=== PATIENT | female | born 2000 | race Caucasian/White ===

== ENCOUNTER 2021-10-27 15:40 | Emergency (ER) | payer OTHER, SELFPAY ==
[2021-10-27 17:02] LABS: Urine Blood Trace-intact (Negative); Urine Glucose Negative (Negative); Urine Protein Negative (Negative); Urine Specific Gravity 1.025 (1.005-1.030); Urine pH 6.5 (5.0-7.0)
--- NOTE | 2021-10-27 17:05 | ER ---
Nurse's Notes [facility] Name: Gislela Bangura Age: 20 yrs Sex: Female : 2000 Arrival Date: 10/27/2021 Time: 15:42 Bed 12 Private MD: Diagnosis: Generalized anxiety disorder; related conditions, unspecified, third trimester Presentation: 10/27 15:51 Chief complaint: Patient states: Was in a verbal argument w/ a family member and ph started to have a panic attack, came to ED because she is 7 months and concerned about her baby not getting enough air, reports tingling to face and hands. Coronavirus screen: Vaccine status:. Ebola Screen: No symptoms or risks identified at this time. Initial Sepsis Screen: Does the patient meet any 2 criteria? No. Patient's initial sepsis screen is negative. Does the patient have a suspected source of infection? No. Patient's initial sepsis screen is negative. Risk Assessment: Do you want to hurt yourself or someone else? Patient reports no desire to harm self or others. Onset of symptoms was October 27, 2021. 15:51 Method Of Arrival: Ambulatory ph 15:51 Acuity: OMID 5 ph Triage Assessment: 15:55 General: Appears in no apparent distress. well groomed, Behavior is cooperative, ph appropriate for age, anxious. Pain: Denies pain. Neuro: Level of Consciousness is awake, alert, obeys commands, Oriented to person, place, time, situation, Reports dizziness, paresthesias in right hand, left hand and mouth. Respiratory: Airway is patent Respiratory effort is Respiratory pattern is tachypnea. LPN RN: 17:08 Verified ph Historical: - Allergies: 15:54 No Known Allergies; ph - PMHx: 15:54 Anxiety; ph - Immunization history:: Adult Immunizations unknown. - Social history:: Smoking status: Patient denies any tobacco usage or history of. Screenin:34 Abuse screen: Denies threats or abuse. Denies injuries from another. Nutritional ph screening: No deficits noted. Tuberculosis screening: No symptoms or risk factors identified. Fall Risk None identified. Assessment: 16:38 General: Appears in no apparent distress. Behavior is cooperative, anxious. Pain: ss Denies pain. Neuro: Level of Consciousness is awake, alert, obeys commands. Cardiovascular: Capillary refill < 3 seconds is brisk in bilateral fingers Patient's skin is warm and dry. Respiratory: Airway is patent Respiratory effort is even, unlabored, Respiratory pattern is regular, symmetrical. GI: Abdomen is round. : No signs and/or symptoms were reported regarding the genitourinary system. EENT: Oral mucosa is moist. Derm: Skin is intact, is healthy with good turgor, Skin is pink, warm \T\ dry. normal. Musculoskeletal: Circulation, motion, and sensation intact. Range of motion: intact in all extremities, Swelling absent. Vital Signs: 15:51 BP 116 / 70; Pulse 113; Resp 26; Temp 98.2; Pulse Ox 99% on R/A; Weight 70.31 kg; ph Height 5 ft. 3 in. (160.02 cm); 15:51 Body Mass Index 27.46 (70.31 kg, 160.02 cm) ph Vitals: 16:37 Heart Tones 150. ss ED Course: 15:42 Patient arrived in ED. rg4 15:42 Arcenio Mesa MD is Attending Physician. kdr 15:54 Triage completed. ph 15:54 Arm band placed on Patient placed in an exam room. ph 16:20 Kaci Perry, ANTHONY is Primary Nurse. ss 16:34 Patient has correct armband on for positive identification. Bed in low position. Call ph light in reach. Side rails up X 1. Pulse ox on. NIBP on. Door closed. Noise minimized. Warm blanket given. Verbal reassurance given. 16:38 No provider procedures requiring assistance completed. Patient did not have IV access ss during this emergency room visit. Administered Medications: No medications were administered Medication: 16:34 VIS not applicable for this client. ph Outcome: 17:05 Discharge ordered by . kdr 17:07 Discharged to home ambulatory, with family. ph 17:07 Condition: good 17:07 Discharge instructions given to patient, Instructed on discharge instructions, follow up and referral plans. Demonstrated understanding of instructions, follow-up care. 17:09 Patient left the ED. ph Signatures: Arcenio Mesa MD MD kdr Kaci Perry RN RN Samanta Poe RN RN Tawny Jones rg4 Corrections: (The following items were deleted from the chart) 17:08 15:55 Respiratory: Airway is patent Respiratory effort is Respiratory pattern is ph regular, symmetrical, ph
--- NOTE | 2021-10-27 17:06 | EDPHYS ---
Physician Documentation [facility] Name: Gisella Bangura Age: 20 yrs Sex: Female : 2000 Arrival Date: 10/27/2021 Time: 15:42 Bed 12 Private MD: ED Physician Arcenio Mesa HPI: 10/27 16:26 This 20 yrs old Female presents to ER via Ambulatory with complaints of Anxiety. kdr 16:26 Patient presents to the ED 7 months after having a panic attack at home. She kdr is concerned that the baby is still okay. She otherwise has not had any trauma or any other reason to believe that the fetus is in poor condition. Patient denies any vaginal fluid leakage or bleeding. She denies any trauma. She has been 4 times with 1 that has been carried to term. This is her fourth . Patient is otherwise been in good health denies any urinary tract symptoms.. Onset: The symptoms/episode began/occurred just prior to arrival. Severity of symptoms: At their worst the symptoms were moderate in the emergency department the symptoms are unchanged. The patient has not experienced similar symptoms in the past. The patient has been recently seen by a physician: the patient's primary care provider. STORYBOARD ARTIST: 17:08 Verified ph Historical: - Allergies: 15:54 No Known Allergies; ph - PMHx: 15:54 Anxiety; ph - Immunization history:: Adult Immunizations unknown. - Social history:: Smoking status: Patient denies any tobacco usage or history of. ROS: 10/28 07:04 Constitutional: Negative for fever, chills, and weight loss, Eyes: Negative for injury, kdr pain, redness, and discharge, ENT: Negative for injury, pain, and discharge, Neck: Negative for injury, pain, and swelling, Cardiovascular: Negative for chest pain, palpitations, and edema, Respiratory: Negative for shortness of breath, cough, wheezing, and pleuritic chest pain, Back: Negative for injury and pain, : Negative for injury, bleeding, discharge, and swelling, MS/Extremity: Negative for injury and deformity, Skin: Negative for injury, rash, and discoloration, Neuro: Negative for headache, weakness, numbness, tingling, and seizure activity. Allergy/Immunology: Negative for hives, rash, and allergies, Endocrine: Negative for neck swelling, polydipsia, polyuria, polyphagia, and marked weight changes, Hematologic/Lymphatic: Negative for swollen nodes, abnormal bleeding, and unusual bruising. Abdomen/GI: Positive for abdominal pain, nausea, Negative for constipation, abdominal cramps, abdominal distension, anorexia, dysphagia, hematemesis, black/tarry stool, rectal pain, rectal bleeding, bowel incontinence. Psych: Positive for anxiety, Negative for depression, drug dependence, alcohol dependence, auditory hallucinations, visual hallucinations, homicidal ideation, insomnia. Exam: 07:04 Constitutional: This is a well developed, well nourished patient who is awake, alert, kdr and in no acute distress. Head/Face: Normocephalic, atraumatic. Eyes: Pupils equal round and reactive to light, extra-ocular motions intact. Lids and lashes normal. Conjunctiva and sclera are non-icteric and not injected. Cornea within normal limits. Periorbital areas with no swelling, redness, or edema. Neck: Trachea midline, no thyromegaly or masses palpated, and no cervical lymphadenopathy. Supple, full range of motion without nuchal rigidity, or vertebral point tenderness. No Meningismus. Chest/axilla: Normal chest wall appearance and motion. Nontender with no deformity. No lesions are appreciated. Cardiovascular: Regular rate and rhythm with a normal S1 and S2. No gallops, murmurs, or rubs. Normal PMI, no JVD. No pulse deficits. Respiratory: Lungs have equal breath sounds bilaterally, clear to auscultation and percussion. No rales, rhonchi or wheezes noted. No increased work of breathing, no retractions or nasal flaring. Back: No spinal tenderness. No costovertebral tenderness. Full range of motion. Skin: Warm, dry with normal turgor. Normal color with no rashes, no lesions, and no evidence of cellulitis. MS/ Extremity: Pulses equal, no cyanosis. Neurovascular intact. Full, normal range of motion. Neuro: Awake and alert, GCS 15, oriented to person, place, time, and situation. Cranial nerves II-XII grossly intact. Motor strength 5/5 in all extremities. Sensory grossly intact. Cerebellar exam normal. Normal gait. Psych: Awake, alert, with orientation to person, place and time. Behavior, mood, and affect are within normal limits. 07:04 Abdomen/GI: Inspection: gravid appearance, is noted, Bowel sounds: active, Palpation: soft, mild abdominal tenderness. Vital Signs: 10/27 15:51 BP 116 / 70; Pulse 113; Resp 26; Temp 98.2; Pulse Ox 99% on R/A; Weight 70.31 kg; ph Height 5 ft. 3 in. (160.02 cm); 15:51 Body Mass Index 27.46 (70.31 kg, 160.02 cm) ph MDM: 17:05 Patient medically screened. kdr 10/28 07:04 Data reviewed: vital signs, nurses notes, lab test result(s). kdr 10/27 17:02 Order name: Urine Dipstick-Ancillary; Complete Time: 07:04 EDMS 10/27 16:25 Order name: FHT's; Complete Time: 16:37 kdr 10/27 16:26 Order name: Urine Dipstick-Ancillary (obtain specimen); Complete Time: 17:03 kdr Administered Medications: No medications were administered Disposition Summary: 10/27/21 17:05 Discharge Ordered Location: Home kdr Problem: new kdr Symptoms: have improved kdr Condition: Stable kdr Diagnosis - Generalized anxiety disorder kdr - related conditions, unspecified, third trimester kdr Followup: kdr - With: Private Physician - When: 2 - 3 days - Reason: If symptoms return, Further diagnostic work-up, Recheck today's complaints, Continuance of care, Re-evaluation by your physician Discharge Instructions: - Discharge Summary Sheet kdr - Panic Attack kdr - Abdominal Pain During , [id number] kdr - Generalized Anxiety Disorder, Adult kdr Forms: - Medication Reconciliation Form kdr - Thank You Letter kdr Signatures: Arcenio Mesa MD MD kdr Samanta Poe RN RN ph
[2021-10-27 17:15] VITALS: BP 116/70; TEMP 98.2; O2SAT 99
== END 2021-10-27 17:09 | disposition home or self-care (01) ==
LOC: ER 15:40
DX: O99.343 Other mental disorders complicating pregnancy, third trimester (principal); F41.9 Anxiety disorder, unspecified
CPT/HCPCS: 81003; 99283

== ENCOUNTER 2022-03-13 02:40 | Emergency (ER) | payer OTHER ==
--- OUTSIDE RECORDS SUMMARY | 2022-03-13 02:47 | XMS REPORT | Continuity of Care Document ---
:2000 Author Organization [facility] t Address [address] [place] [address] Dr. Henley [address] [place] [id number] Care Team Providers Name Role Phone MITCH GARZA Primary Care Physician Unavailable JASVIR LEON Attending Clinician Unavailable JASVIR LEON Attending Clinician Unavailable Pob, Adc Lab Main Attending Clinician Unavailable Preston Armstrong MD Attending Clinician PRESTON ARMSTRONG Attending Clinician Unavailable Neo Marroquin CRNA Attending Clinician Adrian Schaeffer MD Attending Clinician Melinda Bledsoe MD Attending Clinician Only, Adc Test Attending Clinician Unavailable Isabell Wright MD Attending Clinician ISABELL WRIGHT Attending Clinician Unavailable Doctor Unassigned, [place] Attending Clinician Unavailable Lab, Ang - Db Attending Clinician Unavailable Ultrasound, Ang-Mfm Attending Clinician Unavailable Royer Aguillon MD, [place] Attending Clinician [phone] FLORENTINO HIGUERA Attending Clinician Unavailable DR BECKY CHAUDHARY Attending Clinician UnavailDR MANDO Small Attending Clinician Unavailable MR CELSO LEWIS Attending Clinician Unavailable ENNABI, DR MELENDEZ Attending Clinician Unavailable AGUEDA, DR CAM Attending Clinician Unavailable PRESTON ARMSTRONG Admitting Clinician Unavailable Preston Armstrong MD Admitting Clinician DR FLORENTINO HIGUERA Admitting Clinician Unavailable JET, DR BECKY MANNING Admitting Clinician Unavailab Moore, DR GILMORE Admitting Clinician Unavailable DEBBIE, MR HOUSTON Admitting Clinician Unavailable VASILE, DR MELENDEZ Admitting Clinician Unavailable AGUEDA, DR CAM Admitting Clinician Unavailable Payers Payer Name Policy Type Policy Number Effective Date Expiration Date S funmilayo [place] [employer] [id number] 2019 00:00:00 0775 [id number] 2020 00:00:00 Problems Condition Condition Condition Status Onset Resolution Last Treating Co mments Source Name Details Category Date Date Treatment Clinician Date Acute Acute Disease Active Univers blood loss blood loss 9-28 it y of anemia anemia 00:00: [place] 00 [facility] Liveborn Liveborn Disease Active Unive rs , of infant, of 9-27 [place] y of [place] , , 00 [place]ical born in born in [facility] hospital by by delivery delivery Encounter Encounter Disease Active Uni vers for for 9-26 ity of elective elective 00:00: [place] induction induction 00 Medi jermaine of labor of labor [place] Depression Depression Disease Active U nivers affecting affecting 8-18 [place] in third in third 00 Medica l trimester, trimester, Br anch antepartum antepartum Sterilizat Sterilizat Disease Active U nivers ion ion 8-18 ity of consult consult 00:00: [place] 00 [facility] Disease Active Uni vers with with 7-22 ity of abnormal abnormal 00:00: [place] glucose glucose 00 Medical tolerance tolerance Bran ch test test Encounter Encounter Disease Active Uni vers for for 4-05 [place] of super[place] of other n of other 00 Me dical normal normal [place] in second in second trimester trimester Anxiety in Anxiety in Disease Active U nivers 4-05 ity of in second in second 00:00[place] trimester, trimester, 00 Me dical antepartum antepartum Br anch Allergies, Adverse Reactions, Alerts Allergy Allergy Status Severity Reaction(s) Onset Inactive Treating Comm ents Source Name Type Date Date Clinician ALYSONDA DA Active Unknown 2014-04 [facility] 2-17 Medical 00:00: [facility] 00 No Known DA Active [facility] Allergie Holland s NO KNOWN Drug Active [facility] ALLERGIE Class ity of S [facility] Social History Social Habit Start Date Stop Date Quantity Comments Source ASSERTION 2021-05-05 [facility] 00:00:[address] [facility] Exposure to 2022-01-18 2022-01-28 Not sure [facility] SARS-CoV-2 00:00:00 13:04:00 [facility] [place] [facility] (event) [place] Alcohol intake 2022-01-28 2022-01-28 Ex-drinker [facility] 00:00:00 00:00:00 (finding) [facility] Tobacco use and 2021-11-14 2021-11-14 Smokeless tobacco Un iversity of exposure 00:00:00 00:00:00 non-user [facility] Sex Assigned At [birth year] Universit y of 00:00:00 00:00:[address] [facility] Smoking Status Start Date Stop Date Source Never smoked tobacco [facility] Medications Ordered Filled Start Stop Current Ordering Indication Dosage Frequency Signature Comments Components Source Medication Medication Date Date Medication? Clinician (SIG) Name Name ibuprofen Yes 600mg 600 mg, Univ ers (IBU) 9-28 Oral, Q6H ity of tablet 600 23:00: ABX, First [place] mg 00 dose on Medical [facility] 01/22/22 at 1800, Until Discontinu ed, Routine ibuprofen Yes 600mg 600 mg, Univ ers (IBU) 9-28 Oral, Q6H ity of tablet 600 23:00: ABX, First [place] mg 00 dose on [facility] 01/22/22 at 1800, Until Discontinu ed, Routine ibuprofen Yes [id number] 600mg Take 1 Univers 600 mg 9-28 tablet by ity of tablet 00:00: mouth [place] 00 every 6 Medical (six) Branch hours as needed (Pain). Take with food or milk. ferrous Yes [id number] 325mg Take 1 Un gustavo sulfate 9-28 tablet by ity of (IRON, 00:00: mouth [place] FERROUS 00 every Medical SULFATE,) other day. Bran ch 325 mg (65 mg iron) tablet ascorbic Yes [id number] 500mg Take 1 U nivers acid, 9-28 tablet by ity of vitamin C, 00:00: mouth [place] 500 mg 00 every Medical tablet other day. Branch Take with iron ibuprofen Yes [id number] 600mg Take 1 Univers 600 mg 9-28 tablet by ity of tablet 00:00: mouth [place] 00 every 6 Medical (six) Branch hours as needed (Pain). Take with food or milk. ferrous Yes [id number] 325mg Take 1 Un gustavo sulfate 9-28 tablet by ity of (IRON, 00:00: mouth [place] FERROUS 00 every Medical SULFATE,) other day. Bran ch 325 mg (65 mg iron) tablet ascorbic Yes [id number] 500mg Take 1 U nivers acid, 9-28 tablet by ity of vitamin C, 00:00: mouth [place] 500 mg 00 every Medical tablet other day. Branch Take with iron ibuprofen Yes [id number] 600mg Take 1 Univers 600 mg 9-28 tablet by ity of tablet 00:00: mouth [place] 00 every 6 Medical (six) Branch hours as needed (Pain). Take with food or milk. ferrous Yes [id number] 325mg Take 1 Un gustavo sulfate 9-28 tablet by ity of (IRON, 00:00: mouth [place] FERROUS 00 every Medical SULFATE,) other day. Bran ch 325 mg (65 mg iron) tablet ascorbic Yes [id number] 500mg Take 1 U nivers acid, 9-28 tablet by ity of vitamin C, 00:00: mouth [place] 500 mg 00 every Medical tablet other day. Branch Take with iron oxyCODONE 5 2021-0 2021- Yes [id number] 5mg Take 1 Uni vers mg 9-28 10-06 tablet by ity of immediate 00:00: 04:59 mouth [place] release 00 :00 every 6 Medical tablet (six) Branch hours as needed for Pain (scale 7-10) for up to 7 days. Indication s: acute pain oxyCODONE 5 2021-0 2021- No [id number] 5mg Take 1 Uni vers mg 9-28 10-04 tablet by ity of immediate 00:00: 00:00 mouth [place] release 00 :00 every 6 Medical tablet (six) Branch hours as needed for Pain (scale 7-10) for up to 7 days. Indication s: acute pain ketorolac 2021-0 2021- Yes 30mg 30 mg, Unive rs (TORADOL) 01-21 Slow IV ity of injection 23:00: 22:59 Push, Q6H [place] 30 mg 00 :00 ABX, 4 Medical doses, Branch First dose on Thu01/21/22 at 1800, Last dose on Thu01/22/22 at 1200, Routine ketorolac 2021-0 2021- Yes 30mg 30 mg, Unive rs (TORADOL) 01-21 Slow IV ity of injection 23:00: 22:59 Push, Q6H [place] 30 mg 00 :00 ABX, 4 Medical doses, Branch First dose on Thu01/21/22 at 1800, Last dose on Thu01/22/22 at 1200, Routine acetaminoph 2021-0 Yes 650mg 650 mg, Un gustavo en 01-21 Oral, Q6H ity of (TYLENOL) 17:00: ABX, First [place] tablet 650 00 dose on Medica l mg Thu Branch 01/21/22 at 1200, Until Discontinu ed, Routine HYDROcodone 202-0 Yes 2{tbl} 2 tablet, Univers -acetaminop 01-21 Oral, ity of hen (NORCO 17:00: Q6HPRN, [place] 5) 5-325 mg 00 Starting Medi jermaine tablet 2 on Thu Branch tablet 01/21/22 at 1200, Until Discontinu ed, Routine, Pain (scale 7-10), Alternate with Ibuprofen acetaminoph 2022-0 Yes 650mg 650 mg, Un gustavo en 01-21 Oral, Q6H ity of (TYLENOL) 17:00: ABX, First [place] tablet 650 00 dose on Medica l mg Thu Branch 01/21/22 at 1200, Until Discontinu ed, Routine HYDROcodone 2022-0 Yes 2{tbl} 2 tablet, Univers -acetaminop 01-21 Oral, ity of hen (NORCO 17:00: Q6HPRN, [place] 5) 5-325 mg 00 Starting Medi jermaine tablet 2 on Thu Branch tablet 01/21/22 at 1200, Until Discontinu ed, Routine, Pain (scale 7-10), Alternate with Ibuprofen gabapentin Yes 300mg 300 mg, Uni vers (NEURONTIN) 01-21 Oral, TID, it y of capsule 300 13:00: First dose [place] mg 00 on Thu [facility] 01/21/22 at Branch 0800, Until Discontinu ed, Routine gabapentin Yes 300mg 300 mg, Uni vers (NEURONTIN) 01-21 Oral, TID, it y of capsule 300 13:00: First dose [place] mg 00 on Thu01/21/22 at Branch 0800, Until Discontinu ed, Routine acetaminoph 2021- No 1000mg 1,000 mg, Univers en ADULT 01-21 IV ity of (OFIRMEV) 10:45: 12:56 Infusion, [place] injection 00 :00 at 400 Medical 1,000 mg mL/hr Branch Administer over 15 Minutes, ONCE, 1 dose, On Thu01/21/22 at 0545, Routine
Indicatio n: Perioperat marisabel Patient lactated 2021- No 1000mL at 125 [facility] ers ringers IV 01-21 mL/hr, ity of infusion 07:00: 06:56 1,000 mL, [place] as 1,000 mL 00 :00 IV Medical Infusion, Branch ONCE, 1 dose, On Thu01/21/22 at 0200, Routine rho(D) Yes 300ug 300 mcg, [facility] immune 01-21 Intramuscu ity of globulin 06:09: lar, ONCE, [place] as (RHOGAM) 24 For 1 Medical syringe 300 dose, Branch mcg Conditiona l, Routine rho(D) Yes 300ug 300 mcg, [facility] immune 01-21 Intramuscu ity of globulin 06:09: lar, ONCE, [place] as (RHOGAM) 24 For 1 Medical syringe 300 dose, Branch mcg Conditiona l, Routine diphenhydrA Yes 25mg 25 mg, Univ ers MINE 01-21 Slow IV ity of (BENADRYL) 06:09: Push, [place] injection 18 Q6HPRN, Medical 25 mg Starting Branch on Thu01/21/22 at 0109, Until Discontinu ed, Routine, Itching diphenhydrA 2022-0 Yes 25mg 25 mg, Univ ers MINE 01-21 Oral, ity of (BENADRYL) 06:09: Q6HPRN, [place] tablet 25 18 Starting Medica l mg on Thu Branch 01/21/22 at 0109, Until Discontinu ed, Routine, Sleep, Itching ondansetron 2021-0 Yes 4mg 4 mg, Slow Univers (ZOFRAN 01-21 IV Push, ity of (PF)) 06:09: Q8HPRN, [place] injection 4 18 Starting Medi jermaine mg on Thu Branch 01/21/22 at 0109, Until Discontinu ed, Routine, Nausea and Vomiting (N/V) bisacodyL 2021-0 Yes 10mg 10 mg, Univer s (DULCOLAX) 01-21 Rectal, ity of suppository 06:09: QDANTOINEYPRNHemalatha 10 mg 18 Starting Medical on Thu Branch 01/21/22 at 0109, Until Discontinu ed, Routine, Constipati on simethicone 2021-0 Yes 160mg 160 mg, Un gustavo (GAS RELIEF 01-21 Oral, ity of (SIMETHICON 06:09: PC+HSPRN, [place] E)) 18 Starting Medical chewable on Thu tablet 160 01/21/22 at mg 0109, Until Discontinu ed, Routine, Gas docusate 2021-0 Yes 200mg 200 mg, Unive rs (COLACE) 01-21 Oral, ity of capsule 200 06:09: QDAILYPRNHemalatha mg 18 Starting Medical on Thu Branch 01/21/22 at 0109, Until Discontinu ed, Routine, Constipati on magnesium 2021-0 Yes 30mL 30 mL, Univer s hydroxide 01-21 Oral, ity of (MILK OF 06:09: QDAILYPRN, [place] MAGNESIA) 18 Starting Medica l 400 mg/5 mL on Thu suspension 01/21/22 at 30 mL 0109, Until Discontinu ed, Routine, Constipati on diphenhydrA 2-0 Yes 25mg 25 mg, Univ ers MINE 01-21 Slow IV ity of (BENADRYL) 06:09: Push, [place] injection 18 Q6HPRN, Medical 25 mg Starting Branch on Thu01/21/22 at 0109, Until Discontinu ed, Routine, Itching diphenhydrA 2021-0 Yes 25mg 25 mg, Univ ers MINE 01-21 Oral, ity of (BENADRYL) 06:09: Q6HPRN, [place] tablet 25 18 Starting Medica l mg on Thu Branch 01/21/22 at 0109, Until Discontinu ed, Routine, Sleep, Itching ondansetron 2021-0 Yes 4mg 4 mg, Slow Univers (ZOFRAN 01-21 IV Push, ity of (PF)) 06:09: Q8HPRN, [place] injection 4 18 Starting Medi jermaine mg on Thu Branch 01/21/22 at 010, Until Discontinu ed, Routine, Nausea and Vomiting (N/V) bisacodyL 2021-0 Yes 10mg 10 mg, Univer s (DULCOLAX) 01-21 Rectal, ity of suppository 06:09: QDAILYPRN, [place] 10 mg 18 Starting Medical on Thu Branch 01/21/22 at 0109, Until Discontinu ed, Routine, Constipati on simethicone 2021-0 Yes 160mg 160 mg, Un gustavo (GAS RELIEF 01-21 Oral, ity of (SIMETHICON 06:09: PC+HSPRN, [place] E)) 18 Starting Medical chewable on Thu tablet 160 01/21/22 at mg 0109, Until Discontinu ed, Routine, Gas docusate 2021-0 Yes 200mg 200 mg, Unive rs (COLACE) 01-21 Oral, ity of capsule 200 06:09: QDAILYPRN, [place] mg 18 Starting Medical on Thu Branch 01/21/22 at 010, Until Discontinu ed, Routine, Constipati on magnesium 2021-0 Yes 30mL 30 mL, Univer s hydroxide 01-21 Oral, ity of (MILK OF 06:09: QDAILYPRN, [place] MAGNESIA) 18 Starting Medica l 400 mg/5 mL on Thu Branch suspension 01/21/22 at 30 mL 0109, Until Discontinu ed, Routine, Constipati on lactated 2021- No 1000mL at 125 Univ ers ringers IV 01-21 mL/hr, ity of infusion 06:09: 10:28 1,000 mL, [place] 1,000 mL 18 :00 IV Medical Infusion, Branch PRN, 1 dose, Starting on Thu01/21/22 at 0109, Until Discontinu ed, Routine mupirocin Yes Intra-op Univ ers (BACTROBAN 01-21 ity of OINT) 2 % 05:13: [place] skin Medical ointment Branch mupirocin Yes Intra-op Univ ers (BACTROBAN 01-21 ity of OINT) 2 % 05:13: [place] skin Medical ointment Branch azithromyci 2021- No IV Unive rs n 01-21 Piggyback, ity of (ZITHROMAX) 05:04: 05:29 CONTINUOUS [place] 500 mg in 00 :21 PRN, Medical NaCl 0.9% Starting Branch (NS) 250 mL on Thu IV 01/21/22 at piggyback 0004, Until Thu01/21/22 at 0029, Administer over 60 Minutes, 250 mL, Intra-op ondansetron 2021- No Slow IV Un gustavo (ZOFRAN 01-21 Push, ONCE ity o f (PF)) 05:03: 05:29 INTRA [place] injection 00 :21 PROCEDURE, Medi jermaine Starting Branch on Thu01/21/22 at 0003, Until Thu01/21/22 at 0029, Routine, Intra-op naloxone Yes .2mg 0.2 mg, Univer s (NARCAN) 01-21 Intramuscu ity o f injection 04:54: lar, [place] 0.2 mg 54 Q3HPRN, Medical Starting Branch on Thu01/20/22 at 2354, Until Discontinu ed, Routine, Itching naloxone Yes .2mg 0.2 mg, Univer s (NARCAN) 01-21 Intramuscu ity o f injection 04:54: lar, [place] 0.2 mg 54 Q3HPRN, Medical Starting Branch on Thu01/20/22 at 2354, Until Discontinu ed, Routine, Itching naloxone 2021- Yes .4mg 0.4 mg, Unive rs (NARCAN) 01-21 Slow IV ity of injection 04:54: 15:02 Push, PRN [place] 0.4 mg 54 :22 - SEE Medical INSTRUCTIO Branch NS, Starting on Thu01/20/22 at 2354, Until Thu01/22/22 at 1002, Routine, Analgesia Recovery acetaminoph 2021- No IV Unive rs en ADULT 01-21 Infusion, ity o f (OFIRMEV) 04:44: 05:29 Administer [place] injection 00 :21 over 15 Medical Minutes, Branch ONCE INTRA PROCEDURE, Starting on Thu01/20/22 at 2344, Until Thu01/21/22 at 0029, Routine, Intra-op morpHINE PF 2021- No Epidural, Univers (DURAMORPH- 01-21 ONCE INTRA i ty of PF) 04:44: 05:29 PROCEDURE, [place] injection 00 :21 Starting Medica l on Thu [place] 01/20/22 at 2344, Until Thu01/21/22 at 0029, Routine, Intra-op sodium 2021-0 Yes PRN, Univers chloride 01-21 Starting ity of 0.9 % 04:40: on Thu [place] irrigation 00 01/20/22 at Med ical solution 2340, Branch Until Discontinu ed, Intra-op sodium 0 Yes PRN, Univers chloride 01-21 Starting ity of 0.9 % 04:40: on Thu [place] irrigation 00 01/20/22 at Med ical solution 2340, Branch Until Discontinu ed, Intra-op oxytocin 2021- No IV Univers (PITOCIN) 01-21 Infusion, ity of 30 units in 04:35: 05:29 CONTINUOUS [place] NS 500 mL 00 :21 PRN, Medical IV infusion Starting Bran ch on Thu01/20/22 at 2335, Until Thu01/21/22 at 0029, Routine, Intra-op ketamine 2021- No Intravenou Un gustavo (KETALAR) 01-21 s, ONCE ity of injection 04:27: 05:29 INTRA [place] 00 :21 PROCEDURE, Medical Starting Branch on Thu01/20/22 at 2327, Until Thu01/21/22 at 0029, Routine, Intra-op lactated 2021- No IV Univers ringers IV 01-21 Infusion, ity of infusion 03:45: 05:29 CONTINUOUS [place] 00 :21 PRN, Medical Starting Branch on Thu01/20/22 at 2245, Until Thu01/21/22 at 0029, Routine, Intra-op lidocaine 2021- No Epidural, Un gustavo 2% + 01-21 CONTINUOUS ity of epinephrine 03:45: 05:29 PRN, [place] 1:1000 + 00 :21 Starting Medical fentanyl 50 on Thu mcg/mL + 01/20/22 at sodium 2245, bicarb 8.4% Until Thu01/21/22 at 0029, Routine, Intra-op azithromyci 2021- No 500mg 500 mg, IV Univers n 01-21 Piggyback, ity of (ZITHROMAX) 03:14: 04:31 O.R. [place] 500 mg in 48 :00 HOLDING Medical NaCl 0.9% ONCE, 1 Branch (NS) 250 mL dose, VIAL-MATE Starting IV on Thu piggyback 01/20/22 at 2214, Until Thu01/20/22 at 2359, Administer over 60 Minutes, 250 mL
Reas on for Anti-Infec tive: Surgical Prophylaxi s
Ortiz rgical Prophylaxi s: DIAMOND DRILLER
Duration of therapy: within 24 hours of surgery
Reason for Anti-Infec tive: Surgical Prophylaxi s naloxone 2021- No .2mg 0.2 mg, Unive rs (NARCAN) 01-20 Intramuscu ity of injection 19:42: 19:44 lar, ONCE, [place] 0.2 mg 00 :00 1 dose, On Medical Thu Branch 01/20/22 at 1445, Routine fentaNYL-ro 2021- No Epidural, Univers pivacaine 2 01-20 CONTINUOUS i ty of mcg/mL-0.1 16:56: 05:29 PRN, [place] % (PF) in 00 :21 Starting Medica l NS 200 mL on Mon Branch epidural 01/20/22 at infusion 1156, RTU Until 01/21/22 at 0029, Routine, Intra-op PIB 2021- No Epidural, Univers fentaNYL-ro 01-20 ONCE INTRA i ty of pivacaine 2 16:54: 05:29 PROCEDURE, [place] mcg/mL-0.1 00 :21 Starting Medic al % (PF) in on Thu Branch NS 200 mL 01/20/22 at epidural 1154, infusion Until RTU Discontinu ed, Routine, Intra-op lidocaine-e 2021- No Epidural, Univers pinephrine 01-20 ONCE INTRA it y of (XYLOCAINE 16:53: 05:29 PROCEDURE, [place] W/EPINEPHRI 00 :21 Starting Medi jermaine NE) 1.5 on Thu Branch %-1:200,000 01/20/22 at injection 1153, Until Discontinu ed, Routine, Intra-op lidocaine 2021- No Infiltrati U nivers 1% 01-20 on, ONCE ity of (XYLOCAINE) 16:41: 05:29 INTRA [place] 100 mg/10 00 :21 PROCEDURE, Medi jermaine mL (1 %) Starting Branch injection on Thu01/20/22 at 1141, Until Discontinu ed, Routine, Intra-op oxytocin 2021- No 2mU/min at 2-40 Un gustavo (PITOCIN) 01-20 mL/hr, IV ity of 30 units in 11:28: 06:09 Infusion, [place] NS 500 mL 58 :22 TITRATE, Medica l IV infusion Starting Bran ch on Thu01/20/22 at 0628, Until Thu01/21/22 at 0109, [place] ondansetron 2021- No 4mg 4 mg, Slow Univers (ZOFRAN 01-20 IV Push, ity of (PF)) 10:26: 06:09 Q6HPRN, [place] injection 4 36 :22 Nausea and Me dical mg Vomiting Branch (N/V), Starting on Thu01/20/22 at 0526
Do ses of ondansetro n 16 mg and above need to be administer ed via IV piggyback. For Dose >=24mg ECG monitoring is advisable.
lactated 2021- No 500mL at 999 Unive rs ringers IV 01-20 mL/hr, 500 it y of infusion 10:23: 06:09 mL, IV [place] 500 mL 34 :22 Infusion, Medical PRN - SEE Branch INSTRUCTIO NS, Starting on Thu01/20/22 at 0523, Until Thu01/21/22 at 0109, Routine D5W-LR IV 2021- No 1000mL at 1-125 U nivers infusion 01-20 mL/hr, IV ity o f 1,000 mL 10:23: 06:09 Infusion, [place] as 34 :22 TITRATE, Medical Starting Branch on Thu01/20/22 at 0523, Until Thu01/21/22 at 0109, Routine sodium 2021- No 30mL 30 mL, Univers citrate-cit 01-20 Oral, ity of batsheva acid 10:23: 16:35 PRE-PROCED [place] (BICITRA) 34 :00 URE ONCE, Medic al 500-334 1 dose, Branch mg/5 mL Starting solution 30 on Thu mL 01/20/22 at 0523, Until Discontinu ed, Routine, Surgery/Pr ocedure ferrous Yes [id number] 325mg Take 1 Un gustavo sulfate 8-31 tablet by ity of (IRON, 00:00: mouth [place] FERROUS 00 every Medical SULFATE,) other day. Bran ch 325 mg (65 mg iron) tablet ascorbic Yes [id number] 500mg Take 1 U nivers acid, 8-31 tablet by ity of vitamin C, 00:00: mouth [place] 500 mg 00 every Medical tablet other day. Branch Take with iron docusate Yes [id number] 100mg Take 1 U nivers (COLACE) 8-31 capsule by ity o f 100 mg 00:00: mouth 2 [place] capsule 00 (two) Medical times Branch daily as needed for Constipati on. ferrous Yes [id number] 325mg Take 1 Un gustavo sulfate 8-31 tablet by ity of (IRON, 00:00: mouth [place] FERROUS 00 every Medical SULFATE,) other day. Bran ch 325 mg (65 mg iron) tablet ascorbic Yes [id number] 500mg Take 1 U nivers acid, 8-31 tablet by ity of vitamin C, 00:00: mouth [place] 500 mg 00 every Medical tablet other day. Branch Take with iron docusate 0 Yes [id number] 100mg Take 1 U nivers (COLACE) 8-31 capsule by ity o f 100 mg 00:00: mouth 2 [place] capsule 00 (two) Medical times Branch daily as needed for Constipati on. ferrous 0 Yes [id number] 325mg Take 1 Un gustavo sulfate 8-31 tablet by ity of (IRON, 00:00: mouth [place] FERROUS 00 every Medical SULFATE,) other day. Bran ch 325 mg (65 mg iron) tablet ascorbic Yes [id number] 500mg Take 1 U nivers acid, 8-31 tablet by ity of vitamin C, 00:00: mouth [place] 500 mg 00 every Medical tablet other day. Branch Take with iron docusate Yes [id number] 100mg Take 1 U nivers (COLACE) 8-31 capsule by ity o f 100 mg 00:00: mouth 2 [place] capsule 00 (two) Medical times Branch daily as needed for Constipati on. ferrous Yes [id number] 325mg Take 1 Un gustavo sulfate 8-31 tablet by ity of (IRON, 00:00: mouth [place] FERROUS 00 every Medical SULFATE,) other day. Bran ch 325 mg (65 mg iron) tablet ascorbic Yes [id number] 500mg Take 1 U nivers acid, 8-31 tablet by ity of vitamin C, 00:00: mouth [place] 500 mg 00 every Medical tablet other day. Branch Take with iron docusate Yes [id number] 100mg Take 1 U nivers (COLACE) 8-31 capsule by ity o f 100 mg 00:00: mouth 2 [place] capsule 00 (two) Medical times Branch daily as needed for Constipati on. ferrous 2021-0 Yes [id number] 325mg Take 1 Un gustavo sulfate 8-31 tablet by ity of (IRON, 00:00: mouth [place] FERROUS 00 every Medical SULFATE,) other day. Bran ch 325 mg (65 mg iron) tablet ascorbic Yes [id number] 500mg Take 1 U nivers acid, 8-31 tablet by ity of vitamin C, 00:00: mouth [place] 500 mg 00 every Medical tablet other day. Branch Take with iron docusate 2021-0 Yes [id number] 100mg Take 1 U nivers (COLACE) 8-31 capsule by ity o f 100 mg 00:00: mouth 2 [place] capsule 00 (two) Medical times Branch daily as needed for Constipati on. ferrous 2021-0 Yes [id number] 325mg Take 1 Un gustavo sulfate 8-31 tablet by ity of (IRON, 00:00: mouth [place] FERROUS 00 every Medical SULFATE,) other day. Bran ch 325 mg (65 mg iron) tablet ascorbic 0 Yes [id number] 500mg Take 1 U nivers acid, 8-31 tablet by ity of vitamin C, 00:00: mouth [place] 500 mg 00 every Medical tablet other day. Branch Take with iron docusate 2021-0 Yes [id number] 100mg Take 1 U nivers (COLACE) 8-31 capsule by ity o f 100 mg 00:00: mouth 2 [place] capsule 00 (two) Medical times Branch daily as needed for Constipati on. ferrous 2021-0 Yes [id number] 325mg Take 1 Un gustavo sulfate 8-31 tablet by ity of (IRON, 00:00: mouth [place] FERROUS 00 every Medical SULFATE,) other day. Bran ch 325 mg (65 mg iron) tablet ascorbic Yes [id number] 500mg Take 1 U nivers acid, 8-31 tablet by ity of vitamin C, 00:00: mouth [place] 500 mg 00 every Medical tablet other day. Branch Take with iron docusate 0 Yes [id number] 100mg Take 1 U nivers (COLACE) 8-31 capsule by ity o f 100 mg 00:00: mouth 2 [place] capsule 00 (two) Medical times Branch daily as needed for Constipati on. ferrous 2021-0 Yes [id number] 325mg Take 1 Un gustavo sulfate 8-31 tablet by ity of (IRON, 00:00: mouth [place] FERROUS 00 every Medical SULFATE,) other day. Bran ch 325 mg (65 mg iron) tablet ascorbic 0 Yes [id number] 500mg Take 1 U nivers acid, 8-31 tablet by ity of vitamin C, 00:00: mouth [place] 500 mg 00 every Medical tablet other day. Branch Take with iron docusate 2021-0 Yes [id number] 100mg Take 1 U nivers (COLACE) 8-31 capsule by ity o f 100 mg 00:00: mouth 2 [place] capsule 00 (two) Medical times Branch daily as needed for Constipati on. ferrous Yes [id number] 325mg Take 1 Un gustavo sulfate 8-31 tablet by ity of (IRON, 00:00: mouth [place] FERROUS 00 every Medical SULFATE,) other day. Bran ch 325 mg (65 mg iron) tablet ascorbic Yes [id number] 500mg Take 1 U nivers acid, 8-31 tablet by ity of vitamin C, 00:00: mouth [place] 500 mg 00 every Medical tablet other day. Branch Take with iron docusate Yes [id number] 100mg Take 1 U nivers (COLACE) 8-31 capsule by ity o f 100 mg 00:00: mouth 2 [place] capsule 00 (two) Medical times Branch daily as needed for Constipati on. ferrous Yes [id number] 325mg Take 1 Un gustavo sulfate 8-31 tablet by ity of (IRON, 00:00: mouth [place] FERROUS 00 every Medical SULFATE,) other day. Bran ch 325 mg (65 mg iron) tablet ascorbic Yes [id number] 500mg Take 1 U nivers acid, 8-31 tablet by ity of vitamin C, 00:00: mouth [place] 500 mg 00 every Medical tablet other day. Branch Take with iron docusate Yes [id number] 100mg Take 1 U nivers (COLACE) 8-31 capsule by ity o f 100 mg 00:00: mouth 2 [place] capsule 00 (two) Medical times Branch daily as needed for Constipati on. docusate 0 Yes [id number] 100mg Take 1 U nivers (COLACE) 8-31 capsule by ity o f 100 mg 00:00: mouth 2 [place] capsule 00 (two) Medical times Branch daily as needed for Constipati on. docusate 2021-0 Yes [id number] 100mg Take 1 U nivers (COLACE) 8-31 capsule by ity o f 100 mg 00:00: mouth 2 [place] capsule 00 (two) Medical times Branch daily as needed for Constipati on. docusate 0 Yes [id number] 100mg Take 1 U nivers (COLACE) 8-31 capsule by ity o f 100 mg 00:00: mouth 2 [place] capsule 00 (two) Medical times Branch daily as needed for Constipati on. ferrous 2021- No [id number] 325mg Take 1 U nivers sulfate 12-25 tablet by ity of (IRON, 00:00: 00:00 mouth [place] FERROUS 00 :00 every Medical SULFATE,) other day. Bran ch 325 mg (65 mg iron) tablet ascorbic 2021- No [id number] 500mg Take 1 Univers acid, 12-25 tablet by ity of vitamin C, 00:00: 00:00 mouth [place] 500 mg 00 :00 every Medical tablet other day. Branch Take with iron SERTraline Yes [id number] 25mg Take 1 U nivers 25 mg 8-18 tablet by ity of tablet 00:00: mouth in [place] 00 the Medical morning. [place] SERTraline Yes [id number] 25mg Take 1 U nivers 25 mg 8-18 tablet by ity of tablet 00:00: mouth in [place] the Medical morning. [place] SERTraline Yes [id number] 25mg Take 1 U nivers 25 mg 8-18 tablet by ity of tablet 00:00: mouth in [place] the Medical morning. [place] SERTraline Yes [id number] 25mg Take 1 U nivers 25 mg 8-18 tablet by ity of tablet 00:00: mouth in [place] the Medical morning. [place] SERTraline Yes [id number] 25mg Take 1 U nivers 25 mg 8-18 tablet by ity of tablet 00:00: mouth in [place] the Medical morning. [place] SERTraline Yes [id number] 25mg Take 1 U nivers 25 mg 8-18 tablet by ity of tablet 00:00: mouth in [place] the Medical morning. [place] SERTraline Yes [id number] 25mg Take 1 U nivers 25 mg 8-18 tablet by ity of tablet 00:00: mouth in [place] 00 the Medical morning. [place] SERTraline Yes [id number] 25mg Take 1 U nivers 25 mg 8-18 tablet by ity of tablet 00:00: mouth in [place] 00 the Medical morning. [place] SERTraline Yes [id number] 25mg Take 1 U nivers 25 mg 8-18 tablet by ity of tablet 00:00: mouth in [place] 00 the Medical morning. Branch SERTraline Yes [id number] 25mg Take 1 U nivers 25 mg 8-18 tablet by ity of tablet 00:00: mouth in [place] the Medical morning. Branch SERTraline Yes [id number] 25mg Take 1 U nivers 25 mg 8-18 tablet by ity of tablet 00:00: mouth in [place] the Medical morning. Branch SERTraline Yes [id number] 25mg Take 1 U nivers 25 mg 8-18 tablet by ity of tablet 00:00: mouth in [place] the Medical morning. Branch SERTraline Yes [id number] 25mg Take 1 U nivers 25 mg 8-18 tablet by ity of tablet 00:00: mouth in [place] the Medical morning. Branch SERTraline Yes [id number] 25mg Take 1 U nivers 25 mg 8-18 tablet by ity of tablet 00:00: mouth in [place] the Medical morning. Branch SERTraline Yes [id number] 25mg Take 1 U nivers 25 mg 8-18 tablet by ity of tablet 00:00: mouth in [place] the Medical morning. Branch Yes [id number] 1{packe Take 1 Univers vit 4-05 t} Packet by ity of 33-iron-fol 00:00: mouth [place] ic-dha 00 daily. Medical (SELECT-OB Branch + DHA) 29 mg iron-1 mg -250 mg combo pack Yes [id number] 1{packe Take 1 Univers vit 4-05 t} Packet by ity of 33-iron-fol 00:00: mouth [place] ic-dha 00 daily. Medical (SELECT-OB Branch + DHA) 29 mg iron-1 mg -250 mg combo pack Yes [id number] 1{packe Take 1 Univers vit 4-05 t} Packet by ity of 33-iron-fol 00:00: mouth [place] ic-dha 00 daily. Medical (SELECT-OB Branch + DHA) 29 mg iron-1 mg -250 mg combo pack Yes [id number] 1{packe Take 1 Univers vit 4-05 t} Packet by ity of 33-iron-fol 00:00: mouth [place] ic-dha 00 daily. Medical (SELECT-OB Branch + DHA) 29 mg iron-1 mg -250 mg combo pack Yes [id number] 1{packe Take 1 Univers vit 4-05 t} Packet by ity of 33-iron-fol 00:00: mouth [place] ic-dha 00 daily. Medical (SELECT-OB Branch + DHA) 29 mg iron-1 mg -250 mg combo pack Yes [id number] 1{packe Take 1 Univers vit 4-05 t} Packet by ity of 33-iron-fol 00:00: mouth [place] ic-dha 00 daily. Medical (SELECT-OB Branch + DHA) 29 mg iron-1 mg -250 mg combo pack Yes [id number] 1{packe Take 1 Univers vit 4-05 t} Packet by ity of 33-iron-fol 00:00: mouth [place] ic-dha 00 daily. Medical (SELECT-OB Branch + DHA) 29 mg iron-1 mg -250 mg combo pack Yes [id number] 1{packe Take 1 Univers vit 4-05 t} Packet by ity of 33-iron-fol 00:00: mouth [place] ic-dha 00 daily. Medical (SELECT-OB Branch + DHA) 29 mg iron-1 mg -250 mg combo pack Yes [id number] 1{packe Take 1 Univers vit 4-05 t} Packet by ity of 33-iron-fol 00:00: mouth [place] ic-dha 00 daily. Medical (SELECT-OB Branch + DHA) 29 mg iron-1 mg -250 mg combo pack Yes [id number] 1{packe Take 1 Univers vit 4-05 t} Packet by ity of 33-iron-fol 00:00: mouth [place] ic-dha 00 daily. Medical (SELECT-OB Branch + DHA) 29 mg iron-1 mg -250 mg combo pack Yes [id number] 1{packe Take 1 Univers vit 4-05 t} Packet by ity of 33-iron-fol 00:00: mouth [place] ic-dha 00 daily. Medical (SELECT-OB Branch + DHA) 29 mg iron-1 mg -250 mg combo pack Yes [id number] 1{packe Take 1 Univers vit 4-05 t} Packet by ity of 33-iron-fol 00:00: mouth [place] ic-dha 00 daily. Medical (SELECT-OB Branch + DHA) 29 mg iron-1 mg -250 mg combo pack Yes [id number] 1{packe Take 1 Univers vit 4-05 t} Packet by ity of 33-iron-fol 00:00: mouth [place] ic-dha 00 daily. Medical (SELECT-OB Branch + DHA) 29 mg iron-1 mg -250 mg combo pack Yes [id number] 1{packe Take 1 Univers vit 4-05 t} Packet by ity of 33-iron-fol 00:00: mouth [place] ic-dha 00 daily. Medical (SELECT-OB Branch + DHA) 29 mg iron-1 mg -250 mg combo pack Yes [id number] 1{packe Take 1 Univers vit 4-05 t} Packet by ity of 33-iron-fol 00:00: mouth [place] ic-dha 00 daily. Medical (SELECT-OB Branch + DHA) 29 mg iron-1 mg -250 mg combo pack Yes [id number] 1{packe Take 1 Univers vit 4-05 t} Packet by ity of 33-iron-fol 00:00: mouth [place] ic-dha 00 daily. Medical (SELECT-OB Branch + DHA) 29 mg iron-1 mg -250 mg combo pack Yes [id number] 1{packe Take 1 Univers vit 4-05 t} Packet by ity of 33-iron-fol 00:00: mouth [place] ic-dha 00 daily. Medical (SELECT-OB Branch + DHA) 29 mg iron-1 mg -250 mg combo pack Yes [id number] 1{packe Take 1 Univers vit 4-05 t} Packet by ity of 33-iron-fol 00:00: mouth [place] ic-dha 00 daily. Medical (SELECT-OB Branch + DHA) 29 mg iron-1 mg -250 mg combo pack Immunizations Ordered Filled Immunization Date Status Comments [facility] e Immunization Name Name TDAP 2021-11-14 Completed [facility] 00:00:[address] [facility] TDAP 2021-11-14 Completed University of 00:00:00 [facility] [place] [facility] Branch TDAP 2021-11-14 Completed University of 00:00:00 [facility] [place] [facility] Branch TDAP 2021-11-14 Completed University of 00:00:00 [place] [facility] TDAP 2021-11-14 Completed University of 00:00:00 [facility] [place] [facility] Branch TDAP 2021-11-14 Completed University of 00:00:00 [facility] [place] [facility] Branch TDAP 2021-11-14 Completed University of 00:00:00 [facility] [place] [facility] Branch TDAP 2021-11-14 Completed University of 00:00:00 [facility] [place] [facility] Branch TDAP 2021-11-14 Completed University of 00:00:00 [facility] [place] [facility] Branch TDAP 2021-11-14 Completed University of 00:00:00 [facility] [place] [facility] Branch TDAP 2021-11-14 Completed University of 00:00:00 [facility] [place] [facility] Branch TDAP 2021-11-14 Completed University of 00:00:[address] [facility] TDAP 2021-11-14 Completed University of 00:00:00 [facility] [place] [facility] Branch TDAP 2021-11-14 Completed University of 00:00:00 [facility] [place] [facility] Branch TDAP 2021-11-14 Completed University of 00:00:00 [facility] [place] [facility] Branch TDAP 2021-11-14 Completed University of 00:00:[address] [facility] TDAP 2021-11-14 Completed University of 00:00:[address] [facility] Vital Signs Vital Name Observation Time Observation Value Comments Source Systolic blood 2022-01-28 18:09:00 113 mm[Hg] Univer sity of pressure [facility] Diastolic blood 2022-01-28 18:09:00 77 mm[Hg] Unive rsity of pressure [facility] Heart rate 2022-01-28 18:09:00 63 /min [facility] Body temperature 2022-01-28 18:09:00 36.83 Bijal [facility] ersity [facility] Respiratory rate 2022-01-28 18:09:00 16 /min Univ ersity [facility] Body height 2022-01-28 18:09:00 157.5 cm [facility] Body weight 2022-01-28 18:09:00 75.297 kg [facility] BMI 2022-01-28 18:09:00 30.36 kg/m2 Universi ty of [place] [facility] Oxygen saturation in 2022-01-28 18:09:00 96 /min University of Arterial blood by [facility] Pulse oximetry Branch Systolic blood 2022-01-22 12:27:00 103 mm[Hg] Univer sity of pressure [place] [facility] Diastolic blood 2022-01-22 12:27:00 58 mm[Hg] Unive rsity of pressure [place] [facility] Heart rate 2022-01-22 12:27:00 79 /min Universi ty of [place] [facility] Body temperature 2022-01-22 12:27:00 36.78 Bijal Univ ersity of [place] [facility] Respiratory rate 2022-01-22 12:27:00 18 /min Univ ersity of [place] [facility] Oxygen saturation in 2022-01-22 12:27:00 99 /min University of Arterial blood by [facility] Pulse oximetry Branch Body height 2022-01-20 10:21:00 160 cm 5' 3" Universi ty of [place] [facility] Body weight 2022-01-20 10:21:00 86.456 kg 190.6lb Universi ty of [place] [facility] BMI 2022-01-20 10:21:00 33.77 kg/m2 Universi ty of [place] [facility] Respiratory rate 2022-01-21 05:15:00 20 /min Univ ersity of [place] [facility] Systolic blood 2022-01-21 17:45:00 99 mm[Hg] Univer sity of pressure [place] [facility] Diastolic blood 2022-01-21 17:45:00 54 mm[Hg] Unive rsity of pressure [place] [facility] Body temperature 2022-01-21 17:45:00 36.61 Biajl Univ ersity of [place] [facility] Respiratory rate 2022-01-21 17:45:00 17 /min Univ ersity of [place] [facility] Heart rate 2022-01-21 12:30:00 63 /min Universi ty of [place] [facility] Oxygen saturation in 2022-01-21 12:30:00 99 /min University of Arterial blood by [facility] Pulse oximetry Branch Body height 2022-01-20 10:21:00 160 cm 5' 3" Universi ty of [place] [facility] Body weight 2022-01-20 10:21:00 86.456 kg 190.6lb Universi ty [facility] [place] [facility] BMI 2022-01-20 10:21:00 33.77 kg/m2 Universi ty of [place] [facility] Systolic blood 2022-01-13 16:24:00 96 mm[Hg] Univer sity of pressure [place] [facility] Diastolic blood 2022-01-13 16:24:00 51 mm[Hg] Unive rsity of pressure [place] [facility] Heart rate 2022-01-13 16:22:00 94 /min Universi ty of [place] [facility] Body temperature 2022-01-13 16:22:00 37 Bijal Univ ersity of [place] [facility] Respiratory rate 2022-01-13 16:22:00 18 /min Univ ersity of [place] [facility] Body height 2022-01-13 16:22:00 160 cm Universi ty of [place] [facility] Body weight 2022-01-13 16:22:00 86.637 kg Universi ty of [place] [facility] BMI 2022-01-13 16:22:00 33.83 kg/m2 Universi ty of [place] [facility] Systolic blood 2022-01-06 15:21:00 109 mm[Hg] Univer sity of pressure [place] [facility] Diastolic blood 2022-01-06 15:21:00 67 mm[Hg] Unive rsity of pressure [place] [facility] Heart rate 2022-01-06 15:21:00 94 /min Universi ty of [place] [facility] Body temperature 2022-01-06 15:21:00 36.72 Bijal Univ ersity of [place] [facility] Respiratory rate 2022-01-06 15:21:00 18 /min Univ ersity of [place] [facility] Body height 2022-01-06 15:21:00 160 cm Universi ty of [place] [facility] Body weight 2022-01-06 15:21:00 84.823 kg Universi ty of [place] [facility] BMI 2022-01-06 15:21:00 33.13 kg/m2 Universi ty of [place] [facility] Systolic blood 2021-12-12 14:40:00 109 mm[Hg] Univer sity of pressure [place] [facility] Diastolic blood 2021-12-12 14:40:00 67 mm[Hg] Unive rsity of pressure [place] [facility] Heart rate 2021-12-12 14:40:00 88 /min Universi ty of [place] [facility] Body temperature 2021-12-12 14:40:00 36.72 Bijal [facility] [place] Respiratory rate 2021-12-12 14:40:00 18 /min [facility] [place] Body height 2021-12-12 14:40:00 160 cm Universi ty of [facility] Body weight 2021-12-12 14:40:00 81.194 kg Universi ty [facility] BMI 2021-12-12 14:40:00 31.71 kg/m2 Universi ty [facility] Systolic blood 2021-11-14 18:33:00 110 mm[Hg] Univer sity of pressure [facility] Diastolic blood 2021-11-14 18:33:00 66 mm[Hg] Unive rsity of [facility] Heart rate 2021-11-14 18:33:00 80 /min Universi ty [facility] Body temperature 2021-11-14 18:33:00 36.72 Bijal [facility] [place] Respiratory rate 2021-11-14 18:33:00 18 /min [facility] ersity of [facility] Body height 2021-11-14 18:33:00 160 cm Universi ty of [facility] Body weight 2021-11-14 18:33:00 76.885 kg Universi ty of [facility] BMI 2021-11-14 18:33:00 30.03 kg/m2 Universi ty of [facility] Height 2021-06-28 07:47:00 160.02 CM Weight 2021-06-28 07:47:00 63.5 KG Height 2020-12-04 02:07:00 157.48 CM Weight 2020-12-04 02:07:00 66.67 KG Height 2020-06-02 13:51:00 160.02 CM Weight 2020-06-02 13:51:00 3.96 KG Height 2019-10-28 19:54:00 160.02 CM Weight 2019-10-28 19:54:00 61.23 KG Height 2019-05-29 17:37:00 160.02 CM Weight 2019-05-29 17:37:00 61.23 KG Procedures Procedure Date / Time Performing Clinician Source Performed CBC WITH DIFF 2022-01-22 09:13:[address] [facility] SURGICAL PATHOLOGY EXAM 2022-01-21 06:48:00 Melinda Bledsoe [facility] CENTRAL NEURAXIAL BLOCK 2022-01-20 17:01:48 Neo Marroquin [facility] CBC WITH DIFF 2022-01-20 10:46:00 Fish, [facility] HEPATITIS B SURFACE 2022-01-20 10:46:00 Fish, [facility] ANTIGEN [facility] ADC OR DYAN ONLY - 2022-01-20 10:46:00 Fish, [facility] Medical [place] HIV 1/2 AG-AB WITH 2022-01-20 10:46:00 Fish, [facility] REFLEX Medical [place] CBC WITH DIFF 2022-01-20 10:46:00 Fish, [facility] HEPATITIS B SURFACE 2022-01-20 10:46:00 Fish, [facility] ANTIGEN [facility] ADC OR DYAN ONLY - 2022-01-20 10:46:00 Fish, [facility] Medical [place] HIV 1/2 AG-AB WITH 2022-01-20 10:46:00 Fish, [facility] REFLEX [facility] HB ABO GROUPING 2022-01-20 10:45:00 Nathaniel [facility] RHO (D) IMMUNE GLOBULIN 2022-01-20 10:45:00 Melinda Bledsoe [facility] HB ABO GROUPING 2022-01-20 10:45:00 Fish, [facility] RHO (D) IMMUNE GLOBULIN 2022-01-20 10:45:00 Melinda Bledsoe [facility] NOTICE OF PRIVACY 2022-01-17 20:42:33 Doctor Unassigned, No Univ ersity [facility] Medical [place] NOTICE OF PRIVACY 2022-01-17 20:42:33 Doctor Unassigned, No Univ ersity [facility] Medical Branch CONSENT/REFUSAL FOR 2022-01-17 20:38:10 Doctor Unassigned, No [facility] [place] DI[facility]NOSIS [facility] TREATMENT Name Medical Branch CONSENT/REFUSAL FOR 2022-01-17 20:38:10 Doctor Unassigned, No [facility] [place] DIAGNOSIS AND TREATMENT [facility] Medical [place] ASSIGNMENT OF BENEFITS 2022-01-17 20:37:50 Doctor Unassigned, No [facility] Medical [place] ASSIGNMENT OF BENEFITS 2022-01-17 20:37:50 Doctor Unassigned, No [facility] POCT URINALYSIS W/O 2022-01-13 00:00:00 Preston Armstrong [facility] SPECIFIC GRAVITY Medical [place] DSU PRE-OP 2022-01-06 05:01:00 Doctor Unassigned, No [facility] [place] [facility] POCT URINALYSIS W/O 2022-01-06 00:00:00 Nathaniel Preston [facility] SPECIFIC GRAVITY Medical [place] STERILIZATION CONSENT 2021-12-12 05:01:00 Doctor Unassigned, No [facility] POCT URINALYSIS W/O 2021-12-12 00:00:00 Preston Armstrong [facility] SPECIFIC [place] Medical [place] 2 HR GLUCOSE TOLERANCE 2021-12-11 16:03:00 Preston Armstrong [facility] 1 HR GLUCOSE TOLERANCE 2021-12-11 15:03:00 Preston Armstrong [facility] GLUCOSE FASTING 2021-12-11 14:01:00 Nathaniel Preston [facility] CBC WITH DIFF 2021-12-11 14:01:00 Nathaniel [facility] HIV 1/2 AG-AB WITH 2021-12-11 14:01:00 Preston Armstrong [facility] REFLEX [facility] TDAP VACCINE, >11 YRS, 2021-11-14 19:21:52 Preston Armstrong [facility] POCT URINALYSIS W/O 2021-11-14 00:00:00 Preston Armstrong [facility] SPECIFIC GRAVITY Medical [place] REPAIR RT LOW ARM SKIN 2019-10-28 00:00:00 Rosa Elena vega [facility] SECTION Melinda Bledsoe [facility] SECTION Rakan [facility] hospital Encounters Start End Encounter Admission Attending Care Care Encounter Source Date/Time Date/Time Type Type Clinicians Facility Department ID 2022-02-13 2022-02-13 Outpatient R JASVIR LEONMB UTM B [id number] Univers 13:00:00 13:00:00 JASVIR LEON dian [facility] 2022-02-10 2022-02-10 Outpatient R JASVIR LEON [facility] B [id number] Univers 11:00:00 11:00:00 JASVIR LEON [facility] [place] 2022-02-03 2022-02-03 Financial Foundations Representative Althea, Adc Lab Main [facility] 1.2.8 40.114 [id number] Univers 11:30:00 11:45:00 Visit Preston ArmstrongTAYLOR 350.1.13.10 ity of [place] 4[place]2.[place] [id number] [address] 2022-02-03 2022-02-03 Outpatient R PRESTON [facility]STRONG [facility] [id number] Univers 11:00:00 11:00:00 ity [facility] 2022-01-31 2022-01-31 Outpatient R [facility] [id number] Univers 12:45:00 12:45:00 ity [facility] 2022-01-28 2022-01-28 Outpatient R [facility] [id number] Univers 13:00:00 13:26:34 ity [facility] 2022-01-28 2022-01-28 Routine Preston Armstrong [facility] 1.2.840.114 [id number] Univers 13:00:00 13:26:34 ETHAN 350.1.13.10 i ty of Visit [place]2.[place] [facility] [id number] [address] 2022-01-20 2022-01-22 Inpatient P PRESTON ARMSTRONG [facility] DONG [id number] Univers 05:00:00 13:00:00 ity [facility] 2022-01-20 2022-01-22 Hospital Preston Armstrong [facility] 1.2.840.114 [id number] Univers 05:00:00 13:00:00 Encounter OMEGA 350.1.13.10 ity of [place] 4.2.7.2.686 [facility] [id number] [facility] 083 Branch 2022-01-20 2022-01-21 Anesthesia Neo Marroquin [facility] 1.2.840.11 [id number] Univers 11:35:00 00:25:00 Event Adrian Schaeffer 350.1.13. 10 ity of [facility] 4.2.7.2.686 [facility] [id number] [facility] 013 [place] 2022-01-20 2022-01-21 Surgery Melinda Bledsoe [facility] [id number] Univers 00:00:00 00:00:00 Leo DUFF 350.1.13.10 i ty of [facility] 4.2.7.2.686 [facility] [id number] [facility] 013 [place] 2022-01-20 2022-01-20 Anesthesia Neo Marroquin [facility] 1.2.840.11 [id number] Univers 08:49:11 08:49:11 Event Adrian Schaeffer 350.1.13. 10 ity of [facility] 4.2.7.2.686 [facility] [id number] [facility] 083 [place] 2022-01-17 2022-01-17 Laboratory Only, Adc Test [facility] 1.2.840. 114 [id number] Univers 15:00:00 15:15:00 Only Isabell Wright 350.1.13.10 ity of [facility] 4.2.7.2.686 [facility] [id number] [facility] 353 Branch 2022-01-17 2022-01-17 Outpatient R [facility] [id number] Univers 15:00:00 15:00:00 ISABELL itdian of [facility] 2022-01-13 2022-01-13 Outpatient R [facility] [id number] Univers 11:00:00 11:57:27 ity [facility] 2022-01-13 2022-01-13 Routine Nathaniel Preston [facility] 1.2.840.114 [id number] Univers 11:00:00 11:57:27 Jaylen LONG 350.1.13.10 i ty of Visit [place] [facility] [id number] [address] 2022-01-08 2022-01-08 Financial Foundations Representative Jace Oh Lab Main [facility] 1.2.8 40.114 [id number] Univers 10:15:00 10:30:00 Visit Preston Armstrong 350.1.13.10 ity of [place] [id number] Mi dical NAL 353 [facility] 2022-01-08 2022-01-08 Outpatient R [facility] [id number] Univers 10:15:00 10:15:[address] [facility] 2022-01-06 2022-01-06 Outpatient R [facility] [id number] Univers 09:45:00 10:52:[address] [facility] 2022-01-06 2022-01-06 Routine Preston Armstrong [facility] JACINTO 1.2.840.114 [id number] Univers 09:45:00 10:52:46 ETHAN 350.1.13.10 i ty of Visit [place] [id number] [address] 2022-01-06 2022-01-06 Orders Doctor WALDEMAR 1.2.840.114 [id number] Univers 00:00:00 00:00:00 Only Unassigned, HONEY 350.1.13.10 ity of [place] [facility] 4.2.7.2.686 [place] [id number] [address] 2021-12-26 2021-12-26 Outpatient R [facility]ST[facility] [id number] Univers 11:15:00 11:15:00 ity [facility] 2021-12-25 2021-12-25 Case Preston Armstrong ILSARAH JACINTO 1.2.840.114 [id number] Univers 00:00:00 00:00:00 Management ETHAN 350.1.13.10 [place] [facility] [id number] [address] 2021-12-25 2021-12-25 Case Preston Armstrong [facility] 1.2.840.114 [id number] Univers 00:00:00 00:00:00 Management ETHAN 350.1.13.10 [place] [facility] [id number] [facility] 134 Branch 2021-12-12 2021-12-12 Outpatient R [facility] [id number] Univers 09:30:00 10:21:[address] [facility] 2021-12-12 2021-12-12 Routine Preston Armstrong [facility] 1.2.840.114 [id number] Univers 09:30:00 10:21:30 ETHAN 350.1.13.10 i ty of Visit [place] [id number] [facility] [address] 2021-12-12 2021-12-12 Orders Doctor WALDEMAR 1.2.840.[id number] [place] [address] 00:00:00 00:00:00 Only Unassigned, HONEY [id number] ity of [place] [facility] [id number] [place] as [phone] [facility] [address] 2021-12-11 2021-12-11 Financial Foundations Representative Jace Oh Lab Main [facility] 1.2.8 40.114 [id number] Univers 09:00:00 09:15:00 Visit Preston Armstrong [id number] ity of [id number] [id number] Mi dical [facility] 353 [facility] 2021-12-11 2021-12-11 Outpatient [facility] [id number] Univers 09:00:00 09:00:[address] [facility] 2021-12-09 2021-12-09 Outpatient R [facility] [id number] Univers 13:45:00 13:45:[address] [facility] 2021-11-14 2021-11-14 Outpatient R [facility] [id number] Univers 13:30:00 14:09:[address] [facility] 2021-11-14 2021-11-14 Routine Preston Armstrong [facility] 1.2.840.114 [id number] Univers 13:30:00 14:09:19 ETHAN [id number] i ty of Visit [id number] [id number] [address] 2021-11-14 2021-11-14 Outpatient R [facility] [id number] Univers 13:30:00 13:30:[address] [facility] 2021-11-12 2021-11-12 Financial Foundations Representative Althea, Jace Lab Main [facility] 1.2.8 40.114 [id number] Univers 09:45:00 10:00:00 Visit Preston Armstrong [place] [id number] ity of [id number] [phone] Mi dical [address] 2021-11-12 2021-11-12 Outpatient R [facility] [id number] Univers 09:45:00 09:45:[address] [facility] 2021-11-12 2021-11-12 Outpatient R [facility] [id number] Univers 09:45:00 09:45:[address] [facility] 2021-11-04 2021-11-04 Outpatient R [facility] [id number] Univers 13:30:00 13:30:[address] [facility] 2021-11-01 2021-11-01 Telephone Preston Armstrong [facility] 1.2.840.11 [id number] Univers 00:00:00 00:00:00 ETHAN [id number] it y of [id number] [id number] [address] 2021 2021 Financial Foundations Representative Lab, Ayad - [place] [facility] 1.2.840.1 [id number] Univers 11:00:00 11:15:00 Visit Preston Armstrong [id number] ity of [place] 4.2.7.2.686 [place] as SCOTT?BLEA [phone] Mi rosemary [address] MEDICAL OFFICE BUILDING 2021 2021 Outpatient R [facility] [id number] Univers 11:00:00 11:00:00 ity [facility] 2021 2021 Telephone Preston Armstrong ILSARAH JACINTO 1.2.840.11 [id number] Univers 00:00:00 00:00:00 ETHAN [id number] it y of [facility] [id number] [id number] [address] 2021-10-29 2021-10-29 Outpatient R [facility] [id number] Univers 09:00:00 09:00:00 ity [facility] 2021-10-14 2021-10-14 Routine Preston Armstrong [facility] 1.2.840.114 [id number] Univers 13:15:00 14:10:49 ETHAN [id number] i ty of Visit [facility] [id number] [place] [id number] [address] 2021-10-14 2021-10-14 Outpatient R [facility] [id number] Univers 13:15:00 14:10:49 ity [facility] 2021-10-14 2021-10-14 Financial Foundations Representative [facility] 1.2 .840.114 [id number] Univers 10:00:00 11:00:00 Visit Kyara Teresa DIAMOND DRILLER 350.1. 13.10 ity [facility] [id number] [place] as MATERNAL [phone] [facility] ical & CHILD [address] [place] [address] 2021-10-07 2021-10-07 Outpatient R [facility] [id number] Univers 16:15:00 16:15:00 ity [facility] 2021-09-24 2021-09-24 Outpatient R [facility] [id number] Univers 11:15:00 12:06:00 ity [facility] 2021-09-24 2021-09-24 Routine Preston Armstrong [facility] 1.2.840.114 [id number] Univers 11:15:00 12:06:00 ETHAN 350.1.13.10 i ty of Visit [id number] [id number] [address] 2021-09-19 2021-09-19 Outpatient [facility] [id number] Univers 08:30:00 08:30:00 ity [facility] 2021-08-27 2021-08-27 Outpatient R [facility] [id number] Univers 11:00:00 12:00:25 ity [facility] 2021-08-27 2021-08-27 Routine Preston Armstrong [facility] 1.2.840.114 [id number] Univers 11:00:00 12:00:25 ETHAN 350.1.13.10 i ty of Visit [id number] [id number] [address] 2021-08-27 2021-08-27 Outpatient R [facility] [id number] Univers 11:00:00 11:00:[facility] 2021-07-31 2021-07-31 Financial Foundations Representative Lab, [facility] 1.2.840.1 [id number] Univers 09:00:00 09:15:00 Visit Preston Armstrong 350.1.13.10 [facility] [id number] [place] SCOTT?BLEA [phone] [address] MEDICAL OFFICE BUILDING 2021-07-31 2021-07-31 Outpatient [facility] [id number] Univers 09:00:00 09:00:00 ity [facility] 2021-07-31 2021-07-31 Outpatient R [facility] [id number] Univers 09:00:00 09:00:00 ity [facility] 2021-07-30 2021-07-30 Outpatient R [facility] [id number] Univers 08:30:00 09:49:[address] [facility] 2021-07-30 2021-07-30 Initial Preston Armstrong [facility] JACINTO 1.2.840.114 [id number] Univers 08:30:00 09:49:35 ETHAN 350.1.13.10 i ty of Visit [facility] [id number] [facility] [id number] [place] [address] [address] 2021-07-30 2021-07-30 Outpatient R [facility] [id number] [facility] 08:30:00 09:49:[address] [facility] 2021-07-30 2021-07-30 Orders Doctor WALDEMAR 1.2.840.114 [id number] Univers 00:00:00 00:00:00 Only Unassigned, HONEY 350.1.13.10 ity of [place] [facility] [id number] [facility] [id number] [address] 2021-06-28 2021-06-28 Emergency E HIGUERAFLORENTINO Choi [facility] [id number] [place] 07:40:00 08:23:00 [facility] 2020-12-04 2020-12-04 Emergency E JET [facility] 1001 [id number] [facility] 02:04:00 05:15:00 , BECKY [facility] 2020-06-02 2020-06-02 Emergency E OEI, [facility] [id number] [place] 13:51:00 16:50:00 MANDO [facility] [place] 2019-10-28 2019-10-28 Emergency E LEWIS, [facility] [id number] [facility] 19:44:00 21:50:00 CELSO [facility]ica [facility] [place] 2019-05-29 2019-05-29 Emergency E HIGUERA FLORENTINO [facility] [id number] [facility] 17:37:00 19:25:00 Medica l [place] 2018-06-15 2018-06-15 Emergency E ENNABI, [facility] [id number] [facility] 15:18:00 15:55:00 AL [facility] 2017-06-18 2017-06-18 Emergency E AGUEDA, [facility] [id number] [facility] 08:53:00 10:08:00 [facility] Results Test Description Test Time Test Comments Results Result Comments Source RHO (D) IMMUNE GLOBULIN 2022-01-21 17:02:11 Test Item Value Reference Range Interpretation Comme nts RHIG CANDIDATE? (test code = No- see comment Patient is not a candidate for RhIg- 5055) Patient is Rh P ositive.Performed at [facility] Laboratory [facility] [address] [place], [place] [address]Toll Free: [phone] A No. [id number] [facility] IMM[facility]E [id number] 17:02:11 Test Item Value Reference Range Interpretation Comments RHIG CANDIDATE? No- see comment Patient i s not a (test code = candidate for R hIg- 5055) Patient is Rh Positive.Perfor med at [facility] Laboratory [facility] [address]rr[address] [place], [place] [address]Toll Free: [phone] A No. [id number] [facility] and Screen - ONCE [id number] 11:37:00 Test Item Value Reference Range Interpretation Comments ABO & RH (test code A Positive Performe d at [facility] = 20) Laboratory [facility] Blood [place] [address]Toll Free: [phone] A No. [id number] IAT (test code = Negative Performed a t [facility] 1185) Laboratory [facility] Bank[address] [place], [place] [address]Toll Free: [phone] A No. [id number] [facility] and Screen - ONCE [id number] 11:37:00 Test Item Value Reference Range Interpretation Comments ABO & RH (test code A Positive Performe d at [facility] = 20) Laboratory [facility] Blood [place] [address]Toll Free: [phone] A No. [id number] IAT (test code = Negative Performed a t [facility] 1185) Laboratory [facility] Blood Bank1 [address] [place] [address]Tbwk Free: [phone] A No. [id number] [facility] URINALYSIS W/O SPECIFIC [id number] 16:27:00 Test Item Value Reference Range Interpretation Comments POCT PH U (test code = 3254) N/A 5-8 POCT U LEUK EST (test code = N/A Negative - Negative 3263) POCT U NIT (test code = 3262) N/A Negative - Negative POCT U PROT (test code = 3259) Negative Negative - Negative POCT U GLU (test code = 3256) 1+ Negative - Negative POCT U KETONE (test code = 3258) N/A Negative - Negative POCT U BLD (test code = 3257) N/A Negative - Negative [facility] W/O SPECIFIC [id number] 15:28:00 Test Item Value Reference Range Interpretation Comments POCT PH U (test code = 3254) N/A 5-8 POCT U LEUK EST (test code = N/A Negative - Negative 3263) POCT U NIT (test code = 3262) N/A Negative - Negative POCT U PROT (test code = 3259) Trace Negative - Negative POCT U GLU (test code = 3256) Negative Negative - Negative POCT U KETONE (test code = 3258) N/A Negative - Negative POCT U BLD (test code = 3257) N/A Negative - Negative [facility] W/O SPECIFIC [id number] 14:44:00 Test Item Value Reference Range Interpretation Comments POCT PH U (test code = 3254) N/A 5-8 POCT U LEUK EST (test code = N/A Negative - Negative 3263) POCT U NIT (test code = 3262) N/A Negative - Negative POCT U PROT (test code = 3259) Negative Negative - Negative POCT U GLU (test code = 3256) 1+ Negative - Negative POCT U KETONE (test code = 3258) N/A Negative - Negative POCT U BLD (test code = 3257) N/A Negative - Negative [facility]/O SPECIFIC [id number] 18:30:00 Test Item Value Reference Range Interpretation Comments POCT PH U (test code = 3254) n/a 5-8 POCT U LEUK EST (test code = n/a Negative - Negative 3263) POCT U NIT (test code = 3262) n/a Negative - Negative POCT U PROT (test code = 3259) negative Negative - Negative POCT U GLU (test code = 3256) negative Negative - Negative POCT U KETONE (test code = 3258) n/a Negative - Negative POCT U BLD (test code = 3257) n/a Negative - Negative [facility])2020-12-04 02:45:00 Test Item Value Reference Range Interpretation Comments SARS-CoV (ANTIGEN) NEGATIVE NEGATIVE (test code = COVAG) COVID AG (test This test has been code = COVAGC) marketed under the FDA Emergency Use Authorization (EUA) to meet challenges of the COVID-19 pandemic. The validation standards normally enforced by the FDA and the [employer] the [place] [employer] (CAP) are more stringent than those required for this test. Therefore, the result should be interpreted with caution and close attention to other clinical and epidemiological data SARS-CoV-2 (MOLECULAR)2020-06-02 16:24:00 Test Item Value Reference Range Interpretation Comments SARS-CoV-2 MOLECULAR NEGATIVE NEGATIVE (test code = WCOV) COVID AG (test code This test has been = COVAGC) marketed under the FDA Emergency Use Authorization (EUA) to meet challenges of the COVID-19 pandemic. The validation standards normally enforced by the FDA and the [employer] the [place] [employer] (CAP) are more stringent than those required for this test. Therefore, the result should be interpreted with caution and close attention to other clinical and epidemiological data [id number] 16:18:00 Test Item Value Reference Range Interpretation Comments D-DIMER (test code = <200 ng/mL D-DU 0-234 DDI) D-DIMER COMMENT (test *Level to rule out code = DDCOM) DVT or PE: <235 ng/mL D-DU* BETA HCG QUANTITATIVE [id number] 16:17:00 Test Item Value Reference Range Interpretation Comments BHCG QUANT (test 34.00 mIU/mL code = A17) BHCGQ (test code = QUANTITATIVE BHCG BHCQ) RESULT INTERPRETATION --- APPROXIMATE APPROXIMATE GESTATIONAL AGE HCG RANGE (WEEKS) (mIU/mL) - 0.2 - 1 5 - 50 1 - 2 50 - 500 2 - 3 100 - 5,000 3 - 4 500 - 10,000 4 - 5 1,000 - 50,000 5 - 6 10,000 - 100,000 6 - 8 15,000 - 200,000 8 - 12 10,000 - 100,000 --- SARS-CoV (RAPID ANTIGEN)2020-06-02 15:11:00 Test Item Value Reference Range Interpretation Comments SARS-CoV (ANTIGEN) NEGATIVE NEGATIVE (test code = COVAG) COVID AG (test This test has been code = COVAGC) marketed under the FDA Emergency Use Authorization (EUA) to meet challenges of the COVID-19 pandemic. The validation standards normally enforced by the FDA and the [employer] the [place] [employer] (CAP) are more stringent than those required for this test. Therefore, the result should be interpreted with caution and close attention to other clinical and epidemiological data CARDIAC [id number] 15:04:00 Test Item Value Reference Range Interpretation Comments TROPONIN I (test code = A84) <0.015 ng/mL 0.000-0.045 BASIC METABOLIC [id number] 15:01:00 Test Item Value Reference Range Interpretation Comments GLUCOSE (test code = 86 mg/dL 75-100 06D) SODIUM (test code = 143 mmol/L 136-145 01A) POTASSIUM (test code = 4.2 mmol/L 3.6-5.1 01B) CHLORIDE (test code = 110 mmol/L 98-107 H 04A) CO2 (test code = 02A) 28 mmol/L 22-32 ANION GAP (test code = 9.2 mmol/L ANG) BUN (test code = 05D) 6 mg/dL 7-18 L CREATININE (test code 0.7 mg/dL 0.4-1.1 = 03E) GFR (test code = GFR) 120 mL/min/1.73m\\S\\2 >=90 GFR 140 mL/min/1.73m\\S\\2 >=90 (test code = GFRAA) EGFR (test code = eGFR BY CKD-EPI EGFR) CALCULATION IS NOT RECOMMENDED FOR PATIENTS UNDER 18 YEARS OF AGE. BUN/CREA (test code = 8 12-20 L BCR) CALCIUM (test code = 9.6 mg/dL 8.3-9.5 H 09D) SERUM [id number] 14:57:00 Test Item Value Reference Range Interpretation Comments PREG SRM (test code = PGS) POSITIVE NEGATIVE A CBC (INCLUDES AUTOMATED DIFFERENTIAL)2020-06-02 14:54:00 Test Item Value Reference Range Interpretation Comments WBC (test code = WBC) 8.5 10\\S\\3/uL 4.5-13.0 RBC (test code = RBC) 4.86 10\\S\\6/uL 4.30-5.70 HGB (test code = HBG) 15.0 g/dL 12.0-15.5 HCT (test code = HCT) 45.7 % 35.0-44.0 H MCV (test code = MCV) 94.0 fL 81.0-99.0 MCH (test code = MCH) 30.9 pg 27.0-31.0 MCHC (test code = MCHC) 32.8 g/dL 32.0-36.0 RDW (test code = RDW) 12.6 % 11.5-14.5 PLT (test code = PLT) 384 10\\S\\3/uL 130-400 MPV (test code = MPV) 9.3 fL 9.4-12.4 L NEUTROP # (test code = NE#) 5.5 10\\S\\3/uL 1.6-8.0 LYMPH # (test code = LY#) 2.4 10\\S\\3/uL 1.1-3.5 MONOCYTE # (test code = MO#) 0.5 10\\S\\3/uL 0.0-1.1 EOSINOPH # (test code = EO#) 0.1 10\\S\\3/uL 0.0-0.7 BASOPHIL # (test code = BA#) 0.0 10\\S\\3/uL 0.0-0.3 IG # (test code = IG#) 0.02 10\\S\\3/uL 0.00-0.06 NRBC # (test code = NRBC#) 0.00 10\\S\\3/uL 0.00-0.01 NEUTROPH % (test code = NE%) 64.6 % 35.0-73.0 LYMPH % (test code = LY%) 28.4 % 20.0-55.0 MONO % (test code = MO%) 5.3 % 2.5-10.0 EOSINOPH % (test code = EO%) 1.1 % 0.0-5.0 BASOPHIL % (test code = BA%) 0.4 % 0.0-2.0 IG % (test code = IG%) 0.2 % 0.0-0.8 NRBC% (test code = NRBC%) 0.0 % 0.0-0.2 MANDIFF (test code = MDIFF) NO RBC MORPH (test code = RBCMOR) NORMAL XR CHEST 2 VIEW *WW*2017-06-18 09:31:04PA and lateral chest, 2 viewsLocation code: [id number] HISTORY: R05: COUGHCOMPARISON: NoneCOMMENTS: The lungs are clear and well inflated. The costophrenic angles aresharp. The cardiomediastinal silhouette is unremarkable. The bones are intact.IMPRESSION: No acute abnormality
--- NOTE | 2022-03-13 05:42 | EDPHYS ---
Physician Documentation [facility] Name: Gisella Bangura Age: 21 yrs Sex: Female : 2000 Arrival Date: 03/13/2022 Time: 02:44 Bed 13 Private MD: ED Physician Srinivasa Rodrigez HPI: 03/13 07:05 This 21 yrs old Female presents to ER via Ambulatory with complaints of Fever, rt Congestion. 07:05 Onset: The symptoms/episode began/occurred 2 day(s) ago. Modifying factors: there are rt no obvious modifying factors. Associated signs and symptoms: Pertinent positives: runny nose. Presents to the ED with nasal congestion, reported dryness to the throat. Denies any pain, difficulty breathing. Denies other acute complaints at this time, symptoms are mild in severity, no other aggravating or alleviating factors.. 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 - Social history:: Smoking status: Patient denies any tobacco usage or history of. - Family history:: not pertinent. ROS: 07:05 Constitutional: Negative for fever, chills, and weight loss, Eyes: Negative for injury, rt pain, redness, and discharge, Cardiovascular: Negative for chest pain, palpitations, and edema, Respiratory: Negative for shortness of breath, cough, wheezing, and pleuritic chest pain, Abdomen/GI: Negative for abdominal pain, nausea, vomiting, diarrhea, and constipation, Skin: Negative for injury, rash, and discoloration, Neuro: Negative for headache, weakness, numbness, tingling, and seizure, Psych: Negative for depression, anxiety, suicide ideation, homicidal ideation, and hallucinations. 07:05 ENT: Positive for rhinorrhea, sore throat. Exam: 07:05 ENT: Nares patent. No nasal discharge, no septal abnormalities noted. Tympanic rt membranes are normal and external auditory canals are clear. Oropharynx with no redness, swelling, or masses, exudates, or evidence of obstruction, uvula midline. Mucous membranes moist. Skin: Warm, dry with normal turgor. Normal color with no rashes, no lesions, and no evidence of cellulitis. MS/ Extremity: Pulses equal, no cyanosis. Neurovascular intact. Full, normal range of motion. Psych: Awake, alert, with orientation to person, place and time. Behavior, mood, and affect are within normal limits. 07:05 Constitutional: The patient appears in no acute distress, alert, awake. 07:05 Head/face: Atraumatic, normocephalic. Vital Signs: 04:28 BP 99 / 62; Pulse 86; Resp 15; Temp 97.7; Pulse Ox 99% on R/A; Weight 65.77 kg; Height vc1 5 ft. 3 in. (160.02 cm); 04:28 Body Mass Index 25.69 (65.77 kg, 160.02 cm) vc1 MDM: 05:16 Patient medically screened. rt 07:05 ED course: Presents to the ED with nasal congestion, sore throat. The patient has rt positive sick contacts, negative flu, RSV. Patient has no acute distress. During my evaluation of the patient, I called into a critical patient's room, the patient left prior to the completion of my evaluation of the patient.. 07:08 Differential diagnosis: viral Infection, bacterial infection, pneumonia. Data reviewed: rt vital signs, nurses notes, lab test result(s). 03/13 03:25 Order name: SARS-COV-2 RT PCR; Complete Time: 05:15 vc1 03/13 03:25 Order name: Flu; Complete Time: 04:47 vc1 Administered Medications: No medications were administered Disposition Summary: 03/13/22 05:41 Discharge Ordered Location: Home rt Problem: new rt Symptoms: are unchanged rt Condition: Stable rt Diagnosis - Acute upper respiratory infection, unspecified rt Followup: rt - With: Private Physician - When: 2 - 3 days - Reason: Discharge Instructions: - Discharge Summary Sheet rt - Viral Respiratory Infection rt Forms: - Medication Reconciliation Form rt - Thank You Letter rt - Antibiotic Education rt - Prescription Opioid Use rt Signatures: Dispatcher [employer] EDConnie Hackett RN RN vc1 Srinivasa Rodrigez MD MD rt
--- NOTE | 2022-03-13 05:42 | ER ---
Nurse's Notes [facility] Name: Gisella Bangrua Age: 21 yrs Sex: Female : 2000 Arrival Date: 03/13/2022 Time: 02:44 Bed 13 Private MD: Diagnosis: Acute upper respiratory infection, unspecified Presentation: 03/13 04:28 Chief complaint: Patient states: "We've both been just really congested". Coronavirus vc1 screen: Vaccine status: Patient reports being unvaccinated. congestion. Ebola Screen: No symptoms or risks identified at this time. Initial Sepsis Screen: Does the patient meet any 2 criteria? No. Patient's initial sepsis screen is negative. Does the patient have a suspected source of infection? No. Patient's initial sepsis screen is negative. Risk Assessment: Do you want to hurt yourself or someone else? Patient reports no desire to harm self or others. Onset of symptoms was March 12, 2022. 04:28 Method Of Arrival: Ambulatory vc1 04:28 Acuity: OMID 4 vc1 Triage Assessment: 04:30 General: Appears in no apparent distress. uncomfortable, ill, Behavior is calm, vc1 cooperative, appropriate for age. Pain: Denies pain. EENT: Reports nasal congestion. Neuro: Level of Consciousness is awake, alert, obeys commands, Oriented to person, place, time, situation. Respiratory: Airway is patent Respiratory effort is even, unlabored, Respiratory pattern is regular, symmetrical, Breath sounds are clear. GI: No deficits noted. : No deficits noted. Derm: No deficits noted. Musculoskeletal: No deficits noted. 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 - Social history:: Smoking status: Patient denies any tobacco usage or history of. - Family history:: not pertinent. Screenin:30 Abuse screen: Denies threats or abuse. Nutritional screening: No deficits noted. vc1 Tuberculosis screening: No symptoms or risk factors identified. Fall Risk None identified. Vital Signs: 04:28 BP 99 / 62; Pulse 86; Resp 15; Temp 97.7; Pulse Ox 99% on R/A; Weight 65.77 kg; Height vc1 5 ft. 3 in. (160.02 cm); 04:28 Body Mass Index 25.69 (65.77 kg, 160.02 cm) vc1 ED Course: 02:44 Patient arrived in ED. bp1 04:30 Triage completed. vc1 04:31 Arm band placed on right wrist. vc1 04:31 Patient has correct armband on for positive identification. vc1 05:14 Srinivasa Rodrigez MD is Attending Physician. rt 05:47 No provider procedures requiring assistance completed. Patient did not have IV access vc1 during this emergency room visit. Administered Medications: No medications were administered Medication: 04:31 VIS not applicable for this client. vc1 Outcome: 05:41 Discharge ordered by . rt 05:48 Discharged to home vc1 05:48 Condition: good 05:48 Instructed on discharge instructions, follow up and referral plans. 05:51 Patient left the ED. vc1 Signatures: Rosa Soni bp1 Connie Edwards, RN RN vc1 Srinivasa Rodrigez MD MD rt
[2022-03-13 06:02] VITALS: BP 99/62; TEMP 97.7; O2SAT 99
== END 2022-03-13 05:51 | disposition home or self-care (01) ==
LOC: ER 02:40
DX: J06.9 Acute upper respiratory infection, unspecified (principal); Z20.822 Contact with and (suspected) exposure to COVID-19
CPT/HCPCS: 87804 ×2; 99281; U0003